=== PATIENT | female | born 1960 | race African-American/Black ===

== ENCOUNTER 2018-08-16 17:46 | Emergency (ER) | payer OTHER ==
[2018-08-16 17:58] VITALS: BP 124/75; PULSE 83; TEMP 98.7; BMI 33.5
--- NOTE | 2018-08-16 17:58 | PDOC ---
Rapid Medical Evaluation Time Seen by Provider: 08/16/18 17:54 Medical Evaluation: Allergies Allergy/AdvReac Type Severity Reaction Status Date / Time No Known Allergies Allergy Verified 08/16/18 17:54 I have performed a brief in-person evaluation of this patient. The patient presents with a chief complaint of: pain in left calf x 4 days. No trauma to the area. +smoker. Pertinent physical exam findings: Negative maykel's sign left LE, no warmth/ erythema I have ordered the following: ultrasound left LE to r/o DVT The patient will proceed to the ED for further evaluation. Discharge Disposition - Diagnosis Left leg pain - Referrals - Patient Instructions - Post Discharge Activity
--- NOTE | 2018-08-16 18:37 | PDOC ---
History of Present Illness - General Chief Complaint: Pain Stated Complaint: LT LEG PAIN Time Seen by Provider: 08/16/18 17:54 History Source: Patient Exam Limitations: No Limitations - History of Present Illness Initial Comments: 08/16/18 18:27 58 yr female history of HTN, CAD, with left leg pain for one week. pt has pain behind the left knee, no shortness of breath no chest pain. Severity: Yes: mild Past History - Past Medical History Allergies/Adverse Reactions: Allergies Allergy/AdvReac Type Severity Reaction Status Date / Time No Known Allergies Allergy Verified 08/16/18 17:54 Home Medications: Ambulatory Orders Losartan Potassium 100 mg PO ASDIR 08/16/18 Metoprolol Tartrate 50 mg PO ASDIR 08/16/18 Naproxen [Naprosyn -] 500 mg PO BID PRN #14 tablet 08/16/18 COPD: No HTN: Yes - Suicide/Smoking/Psychosocial Hx Smoking History: Current every day smoker Number of Cigarettes Smoked Daily: 13 Information on smoking cessation initiated: Yes 'Breaking Loose' booklet given: 08/16/18 Hx Alcohol Use: No Drug/Substance Use Hx: No Substance Use Type: None Review of Systems - Review of Systems Able to Perform ROS?: Yes Is the patient limited Urdu proficient: No Constitutional: No: Symptoms Reported HEENTM: No: Symptoms Reported Respiratory: No: Symptoms reported Cardiac (ROS): No: Symptoms Reported ABD/GI: No: Symptoms Reported : No: Symptoms Reported Musculoskeletal: Yes: Symptoms Reported *Physical Exam - Vital Signs Last Vital Signs Temp Pulse Resp BP Pulse Ox 98.7 F 83 18 124/75 100 08/16/18 17:55 08/16/18 17:55 08/16/18 17:55 08/16/18 17:55 08/16/18 17:55 - Physical Exam General Appearance: Yes: Nourished, Appropriately Dressed HEENT: positive: EOMI, CITLALLI Neck: positive: Supple. negative: Tender Respiratory/Chest: positive: Lungs Clear, Normal Breath Sounds Cardiovascular: positive: Regular Rhythm, Regular Rate Musculoskeletal: positive: Normal Inspection Extremity: positive: Normal Capillary Refill, Normal Inspection, Normal Range of Motion, Calf Tenderness, Other (tender to the popliteal area oft tissue tenderness). negative: Swelling, Erythema, Inflammation Integumentary: positive: Normal Color, Dry, Warm, Other (foot warm pink ). negative: Rash, Ecchymosis, Bruising Neurologic: positive: Fully Oriented, Alert, Normal Mood/Affect, Normal Response , Motor Strength 5/5 Medical Decision Making - Medical Decision Making 08/16/18 18:37 cc: left calf pain behind the knee worse with walking no pain meds taken pt ambulating freely US is negative dc home supprotive care and follow with PMD next working day 08/19/18 09:39 *DC/Admit/Observation/Transfer Diagnosis at time of Disposition: Left leg pain - Discharge Dispostion Disposition: HOME Condition at time of disposition: Good - Prescriptions Prescriptions: Naproxen [Naprosyn -] 500 mg PO BID PRN #14 tablet PRN Reason: Pain - Referrals Referrals: Andrea Olivo [Primary Care Provider] - Raj Kulkarni MD [Non Staff, Medical] - - Patient Instructions Additional Instructions: take naprosyn for pain use the compression dressings during the day elevate at night when you get home follow with the vascular doctor for follow up return to ER for any worsening symptoms - Post Discharge Activity Forms/Work/School Notes: Back to Work
== END 2018-08-16 19:16 | disposition home or self-care (01) ==
LOC: JERFT 17:46 → JER 17:46 → JERFT 19:16
DX: M79.662 Pain in left lower leg (principal); I25.10 Atherosclerotic heart disease of native coronary artery without angina pectoris; I10 Essential (primary) hypertension
CPT/HCPCS: 93971-TC; 99281-25